=== PATIENT | male | born 1970 | race Caucasian/White ===

== ENCOUNTER 2019-09-06 06:02 | Emergency (ER) | payer BC ==
[~2019-09-06] VITALS: Ht 177.8 cm; Wt 77.0 kg
[~2019-09-06 06:02] MED LIST: IBUP800T19 PO; OXYC1TAB15 PO; PROM25TA10 PO
--- NOTE | 2019-09-06 06:28 | PHYS DOC ---
Past History Past Medical History: No Pertinent History Past Surgical History: Other Smoking: Non-smoker Alcohol Use: None Drug Use: None Adult General HPI HPI Patient is a 49-year-old male who presented to ER today for evaluation of severe left flank pain that radiated to left groin area and left scrotal area started about 2 hours ago. Patient said the pain is sharp stabbing, woke him up from sleep. Patient urinated blood. Patient said he had history of kidney stone about 5 years ago. Patient feels like he has another kidney stone. Patient denies any fever. Patient denies any injury. Review of Systems Review of Systems Constitutional: Denies fever or chills [] Eyes: Denies change in visual acuity, redness, or eye pain [] HENT: Denies nasal congestion or sore throat [] Respiratory: Denies cough or shortness of breath [] Cardiovascular: No additional information not addressed in HPI [] GI: Positive abdominal pain, NO nausea, vomiting, bloody stools or diarrhea [] : Denies dysuria , POSITIVE FOR hematuria [] Musculoskeletal: Denies back pain or joint pain [] Integument: Denies rash or skin lesions [] Neurologic: Denies headache, focal weakness or sensory changes [] Endocrine: Denies polyuria or polydipsia [] All other systems were reviewed and found to be within normal limits, except as documented in this note. Allergies Allergies Allergies Coded Allergies Type Severity Reaction Last Updated Verified No Known Drug Allergies 01/07/14 No Physical Exam Physical Exam Constitutional: Well developed, well nourished, MILD acute distress due to pain, non-toxic appearance. [] HENT: Normocephalic, atraumatic, bilateral external ears normal, oropharynx moist, no oral exudates, nose normal. [] Eyes: PERRLA, EOMI, conjunctiva normal, no discharge. [] Neck: Normal range of motion, no tenderness, supple, no stridor. [] Cardiovascular:Heart rate regular rhythm, no murmur [] Lungs & Thorax: Bilateral breath sounds clear to auscultation [] Abdomen: Bowel sounds normal, soft, THERE IS tenderness TO PALPATION LLQ, no masses, no pulsatile masses. [] Skin: Warm, dry, no erythema, no rash. [] Back: No tenderness, There is left CVA tenderness. Extremities: No tenderness, no cyanosis, no clubbing, ROM intact, no edema. [] Neurologic: Alert and oriented X 3, normal motor function, normal sensory function, no focal deficits noted. [] Psychologic: Affect normal, judgement normal, mood normal. [] Current Patient Data Vital Signs Laboratory Tests Test 09/06/19 06:20 09/06/19 06:30 Urine Collection Type Unknown Urine Color Brown Urine Clarity Turbid Urine pH 5.5 Urine Specific Comins >=1.030 Urine Protein >100 mg/dl Urine Glucose (UA) Neg mg/dL Urine Ketones (Stick) Neg mg/dL Urine Blood Large Urine Nitrite Urine Bilirubin Neg Urine Urobilinogen Dipstick 1.0 mg/dL Urine Leukocyte Esterase Neg Urine RBC Tntc /HPF Urine WBC 5-10 /HPF Urine Squamous Epithelial Cells Occ /LPF Urine Bacteria Mod /HPF Urine Mucus Slight /LPF White Blood Count 8.2 x10^3/uL Red Blood Count 4.79 x10^6/uL Hemoglobin 14.5 g/dL Hematocrit 44.1 % Mean Corpuscular Volume 92 fL Mean Corpuscular Hemoglobin 30 pg Mean Corpuscular Hemoglobin Concent 33 g/dL Red Cell Distribution Width 13.0 % Platelet Count 221 x10^3/uL Neutrophils (%) (Auto) 52 % Lymphocytes (%) (Auto) 38 % Monocytes (%) (Auto) 9 % Eosinophils (%) (Auto) 1 % Basophils (%) (Auto) 1 % Neutrophils # (Auto) 4.3 x10^3uL Lymphocytes # (Auto) 3.1 x10^3/uL Monocytes # (Auto) 0.7 x10^3/uL Eosinophils # (Auto) 0.1 x10^3/uL Basophils # (Auto) 0.0 x10^3/uL Sodium Level 144 mmol/L Potassium Level 3.6 mmol/L Chloride Level 107 mmol/L Carbon Dioxide Level 28 mmol/L Anion Gap 9 Blood Urea Nitrogen 17 mg/dL Creatinine 1.3 mg/dL Estimated GFR (Cockcroft-Gault) 58.7 BUN/Creatinine Ratio 13 Glucose Level 115 mg/dL Calcium Level 8.1 mg/dL Total Bilirubin 0.5 mg/dL Aspartate Amino Transf (AST/SGOT) 23 U/L Alanine Aminotransferase (ALT/SGPT) 31 U/L Alkaline Phosphatase 67 U/L Total Protein 7.1 g/dL Albumin 4.0 g/dL Albumin/Globulin Ratio 1.3 Current Medications Medications (Trade) Dose Ordered Sig/Erasmo Route PRN Reason Start Time Stop Time Status Last Admin Dose Admin Ketorolac Tromethamine (Toradol 30mg Vial) 30 mg 1X ONCE IVP 09/06/19 07:00 09/06/19 07:01 DC 09/06/19 06:38 Ondansetron HCl (Zofran) 4 mg 1X ONCE IVP 09/06/19 07:00 09/06/19 07:01 DC 09/06/19 06:37 Fentanyl Citrate (Fentanyl 2ml Vial) 50 mcg 1X ONCE IVP 09/06/19 07:00 09/06/19 07:01 DC 09/06/19 06:37 Sodium Chloride 1,000 ml @ 1,000 mls/hr 1X ONCE IV 09/06/19 07:00 09/06/19 07:59 09/06/19 06:37 Morphine Sulfate (Morphine 4mg Syringe) 4 mg 1X ONCE IV 09/06/19 07:30 09/06/19 07:31 DC 09/06/19 07:25 Tamsulosin HCl (Flomax) 0.4 mg 1X ONCE PO 09/06/19 07:30 09/06/19 07:31 DC 09/06/19 07:27 EKG EKG [] Radiology/Procedures Radiology/Procedures [][place] [address] IMAGING REPORT Signed PATIENT: SANDER PEREZ ACCOUNT: [id number] : 1970 LOCATION: ER AGE: 49 SEX: M EXAM STATUS: REG ER ORD. PHYSICIAN: SHAQUILLE DIAZ DO REASON: left flank pain since 5 am, hx of kidney stone,Pain lower Lt back PROCEDURE: CT ABDOMEN PELVIS WO CONTRAST CT scan abdomen and pelvis without contrast 09/06/2019 CLINICAL HISTORY: Left flank pain and 5:00 AM. TECHNIQUE: Unenhanced, contiguous, 3 mm axial sections were obtained to the abdomen and pelvis. One or more of the following individualized dose reduction techniques were utilized for this study: 1. Automated exposure control. 2. Adjustment of the mA and/or kV according to patient size. 3. Use of iterative reconstruction technique. FINDINGS: Comparison study dated 01/07/2014. Images through the lung bases demonstrate minimal dependent subsegmental atelectasis bilaterally. The liver, spleen, pancreas, and adrenal glands are within normal limits. A 2 mm nonobstructing calculus is seen involving the lower pole of the right kidney. A 1 mm nonobstructing calculus is seen involving the superior pole left kidney. Mild dilatation of left intrarenal collecting system is seen. In the left UPJ a 4 millimeter ureteral calculus is seen. This is causing mild obstruction of the left collecting system. Atherosclerotic calcification abdominal aorta and its branches is noted. The abdominal aorta tapers normally. The gallbladder is contracted. No free fluid or free air is seen within the abdomen. Air and stool seen throughout the colon. There is no evidence of bowel obstruction. The appendix is well-visualized and is within normal limits. Images through the pelvis demonstrate the urinary bladder to be contracted. Calcifications are seen within the pelvis consistent with phleboliths. Calcification are seen within the prostate gland. No free fluid is seen. Very mild S-shaped curvature of the thoracolumbar spine is noted. IMPRESSION: 4 mm left UPJ calculus is seen which is causing mild obstruction of the left collecting system. Electronically signed by: Jeb Mello MD (09/06/2019 7:29 AM) [id number] DICTATED AND SIGNED BY: JEB MELLO MD DATE: 09/06/19 0729 CC: JOHN CLIFFORD; SHAQUILLE DIAZ DO ~ Course & Med Decision Making Course & Med Decision Making Pertinent Labs and Imaging studies reviewed. (See chart for details) Patient is a 49-year-old male who was found to have kidney stone in his left kidney. Patient was given pain medication in the ER, he felt much better. There is no fever, no evidence of infection. His kidney function is normal. Patient does not need to be admitted to hospital. Patient will be discharged home with pain medication. Patient will need to follow with urology for outpatient evaluation and treatment. Patient is amenable to plan of care. Dragon Disclaimer Dragon Disclaimer This electronic medical record was generated, in whole or in part, using a voice recognition dictation system. Departure Departure: Impression: Primary Impression: Kidney stone on left side Disposition: HOME, SELF-CARE Condition: STABLE Referrals: JOHN CLIFFORD (PCP) please follow up with your doctor for a referral to a urologist for outpatient evaluation and treatment. GINNY CUMMINGS MD please call this urologist for follow up this week. Patient Instructions: Diet for Kidney Stones, Kidney Stones Additional Instructions: Thank you for visiting our Emergency Department. We appreciate you trusting us with your care. If any additional problems come up don't hesitate to return to visit us. Please follow up with your primary care provider so they can plan additional care if needed and know about the problem that you had. If symptoms worsen come back to the Emergency Department. Any concerning symptoms that start such as chest pain, shortness of air, weakness or numbness on one side of the body, running high fevers or any other concerning symptoms return to the ER. Scripts Ondansetron Hcl (ZOFRAN) 4 Mg Tablet 1 TAB PO Q6HRS for nuasea, #20 TAB Prov: SHAQUILLE DIAZ DO 09/06/19 Tamsulosin Hcl (FLOMAX) 0.4 Mg Cap.er.24h 1 CAP PO DAILY for kidney stone, #14 CAP 11 Refills Prov: SHAQUILLE DIAZ DO 09/06/19 Ibuprofen (IBUPROFEN) 800 Mg Tablet 1 TAB PO TID for pain, #30 TAB Prov: SHAQUILLE DIAZ DO 09/06/19 Oxycodone HCl/Acetaminophen (Percocet 5-325 mg Tablet) 1 Each Tablet 1 TAB PO PRN QID PRN for PAIN MDD 4 Tablet(s) for 5 Days, #20 TAB 0 Refills Prov: SHAQUILLE DIAZ DO 09/06/19 SHAQUILLE DIAZ DO Sep 06, 2019 06:28
[2019-09-06 06:45] LABS: BASO % 1 % (0-3); EOS # 0.1 x10^3/uL (0.0-0.7); EOS % 1 % (0-3); HEMATOCRIT 44.1 % (39.0-53.0); HEMOGLOBIN 14.5 g/dL (13.0-17.5); LYMPH # 3.1 x10^3/uL (1.0-4.8); LYMPH % 38 % (24-48); MEAN CORPUSCULAR HEMOGLOBIN 30 pg (25-35); MEAN CORPUSCULAR HGB CONC 33 g/dL (31-37); MEAN CORPUSCULAR VOLUME 92 fL (79-100); MONO # 0.7 x10^3/uL (0.0-1.1); MONO % 9 % (0-9); NEUT # 4.3 x10^3uL (1.8-7.7); NEUT % 52 % (31-73); PLATELET COUNT 221 x10^3/uL (140-400); RED BLOOD COUNT 4.79 x10^6/uL (4.30-5.70); WHITE BLOOD COUNT 8.2 x10^3/uL (4.0-11.0)
[2019-09-06 06:52] LABS: CALCIUM 8.1 mg/dL (8.5-10.1); CREATININE 1.3 mg/dL (0.7-1.3); GFR 58.7; POTASSIUM 3.6 mmol/L (3.5-5.1)
[2019-09-06 06:57] LABS: ALBUMIN/GLOBULIN RATIO 1.3 (1.0-1.7); TOTAL BILIRUBIN 0.5 mg/dL (0.2-1.0); TOTAL PROTEIN 7.1 g/dL (6.4-8.2)
[2019-09-06] MEDS ORDERED: ONDANSETRON PF 4 MG/2 ML VIAL. IVP ONE (07:00)
[2019-09-06] MEDS ORDERED: KETOROLAC 30 MG/ML VIAL. IVP ONE (07:00)
[2019-09-06] MEDS ORDERED: IV NORMAL SALINE 1,000ML 1,000 ML IV ONE (07:00)
[2019-09-06 07:10] LABS: BILIRUBIN,URINE NEG (NEG); CLARITY,URINE TURBID; COLOR,URINE BROWN; GLUCOSE,URINE NEG (NEG)
[2019-09-06 07:15] LABS: BACTERIA,URINE MOD /HPF (0-FEW); RBC,URINE TNTC /HPF (0-2); SQUAMOUS EPITHELIAL CELL,UR OCC /LPF
[2019-09-06] MEDS ORDERED: TAMSULOSIN 0.4 MG CAP.ER.24H. PO ONE (07:30)
[2019-09-06] MEDS ORDERED: MORPHINE SULFATE 4 MG/ML DISP.SYRIN. IV ONE (07:30)
--- NOTE | 2019-09-06 07:31 | RAD ---
CT scan abdomen and pelvis without contrast 09/06/2019 CLINICAL HISTORY: Left flank pain and 5:00 AM. TECHNIQUE: Unenhanced, contiguous, 3 mm axial sections were obtained to the abdomen and pelvis. One or more of the following individualized dose reduction techniques were utilized for this study: 1. Automated exposure control. 2. Adjustment of the mA and/or kV according to patient size. 3. Use of iterative reconstruction technique. FINDINGS: Comparison study dated 01/07/2014. Images through the lung bases demonstrate minimal dependent subsegmental atelectasis bilaterally. The liver, spleen, pancreas, and adrenal glands are within normal limits. A 2 mm nonobstructing calculus is seen involving the lower pole of the right kidney. A 1 mm nonobstructing calculus is seen involving the superior pole left kidney. Mild dilatation of left intrarenal collecting system is seen. In the left UPJ a 4 millimeter ureteral calculus is seen. This is causing mild obstruction of the left collecting system. Atherosclerotic calcification abdominal aorta and its branches is noted. The abdominal aorta tapers normally. The gallbladder is contracted. No free fluid or free air is seen within the abdomen. Air and stool seen throughout the colon. There is no evidence of bowel obstruction. The appendix is well-visualized and is within normal limits. Images through the pelvis demonstrate the urinary bladder to be contracted. Calcifications are seen within the pelvis consistent with phleboliths. Calcification are seen within the prostate gland. No free fluid is seen. Very mild S-shaped curvature of the thoracolumbar spine is noted. IMPRESSION: 4 mm left UPJ calculus is seen which is causing mild obstruction of the left collecting system. Electronically signed by: Jeb Mello MD (09/06/2019 7:29 AM) [id number]
[2019-09-06] MEDS ORDERED: oxyCODONE/APAP 10/325 1 TAB TABLET PO ONE (08:00)
[2019-09-06] MEDS ORDERED: HYDROmorphone PF 1 MG/ML DISP.SYRIN IV ONE (08:00)
[2019-09-06 08:05] VITALS: BP 125/71
[2019-09-06] MEDS ORDERED: ONDA4TAB7 PO (08:53)
[2019-09-06] MEDS ORDERED: OXYC-325 PO (08:53)
[2019-09-06] MEDS ORDERED: TAMS0.4C97 PO (08:53)
[2019-09-06] MEDS ORDERED: IBUP800T19 PO (08:53)
== END 2019-09-06 09:05 | disposition home or self-care (01) ==
LOC: ER 06:02
DX: N20.0 Calculus of kidney (principal)
CPT/HCPCS: 36415; 74176; 80053; 81001; 85025; 87086; 96374; 96375; 99284; J1170; J1885; J2270; J2405; J3010; J7030